=== PATIENT | male | born 1975 | race Caucasian/White ===

== ENCOUNTER 2020-08-20 13:58 | Emergency (ER) | payer BC, SELFPAY ==
[2020-08-20 14:06] VITALS: BP 168/102; PULSE 112; RESP 20; TEMP 35.9; O2SAT 97
--- NOTE | 2020-08-20 14:12 | ED.GENADULT ---
HPI - General Adult General Chief complaint: Unspecified Stated complaint: musecles cramping up all over Time Seen by Provider: 08/20/20 14:12 Source: patient and RN notes reviewed Mode of arrival: ambulatory History of Present Illness HPI narrative: 45-year-old male presents to the [facility] with complaints of 1 year of generalized muscle aches worse since last night in the upper abd and lower back. Reports having trouble sleeping and working today. States that the pain is worse then normal. Patient reports that when the pain starts he just stretched it out. Patient appears restless. Reports just starting a new job today. Related Data Home Medications Medication Instructions Recorded Confirmed No Home Medications 08/20/20 08/20/20 Allergies Allergy/AdvReac Type Severity Reaction Status Date / Time No Known Allergies Allergy Unverified 09/12/19 15:55 Review of Systems Review of Systems: Narrative: CONSTITUTIONAL: Denies fever, chills, or sweats. EYES: Denies visual changes, redness, or discharge. ENT: Denies rhinorrhea, congestion, sore throat, or otalgia. CARDIOVASCULAR: Denies chest pain, palpitations, or edema. RESPIRATORY: Denies cough or dyspnea. GASTROINTESTINAL: Reports upper abdominal pain musle pain without nausea, vomiting, or diarrhea. GENITOURINARY: Denies dysuria or hematuria. SKIN: Denies rash or itching. MUSCULOSKELETAL: reports lower back pain and generalized muscle pain. Denies joint pain. NEUROLOGIC: Denies headache, numbness, or weakness. PSYCHIATRIC: Denies anxiety or depression. All other systems reviewed are negative, except as documented in HPI. PMFSH Social History Social History Gender identity (if verbalized by the patient): Male Comments Patient denies any past medical history. At the time of my signature, I reviewed and agree with the nursing past medical, surgical, social, and family history. There is no relevant family history pertinent to the patient complaint. Exam Narrative: Exam Narrative: GENERAL: This is a well-nourished, well-developed patient, in mild distress. Patient is unable to sit still, constantly changing positions during exam. Patient is morbidly obese HEAD: normocephalic, atraumatic. EYES: PERRL. Sclera clear/white. Vision is grossly intact. EARS: External ears normal. NECK: Neck supple, non-tender. CARDIOVASCULAR: increased rate and normal rhythm without murmurs, gallops, or rubs. RESPIRATORY: Clear to auscultation. Breath sounds equal bilaterally. No wheezes, rales, or rhonchi. GASTROINTESTINAL: Abdomen soft, upper abd tenderness, nondistended. guarding noted with palpation of the upper abd. SKIN: warm, intact with no suspicious lesions or rash, good texture and turgor. NEURO: awake, alert, and oriented to person, place and time. There were no obvious focal neurologic abnormalities. EXTREMITIES: No joint tenderness, effusion, or edema noted. BACK: tender without deformity. No CVA tenderness. Course Course Emergency Course: On examination patient in distress on palpation of the upper abdomen. Describes it as the worst pain possible. Blood pressure is elevated. Discussed that the patient needs to be evaluated with blood work in an emergency room. Vital Signs Vital signs: Vital Signs Temperature 96.6 F L 08/20/20 14:06 Pulse Rate 112 H 08/20/20 14:06 Respiratory Rate 20 08/20/20 14:06 Blood Pressure 168/102 H 08/20/20 14:06 Pulse Oximetry 97 08/20/20 14:06 Temperature 96.6 F L 08/20/20 14:06 Pulse Rate 112 H 08/20/20 14:06 Respiratory Rate 20 08/20/20 14:06 Blood Pressure 168/102 H 08/20/20 14:06 Pulse Oximetry 97 08/20/20 14:06 Elevated blood pressure and heart rate Transfer Transfered to: [facility] Transfer rationale: Due to patient's complaints of generalized muscle aches and pains with the severe pain. No pain control available here, believe blood work is neede
== END 2020-08-20 14:20 | disposition short-term general hospital (02) ==
LOC: EXPBETH 14:03
PROVIDERS: Emergency Provider Nurse Practitioner
DX: M79.10 Myalgia, unspecified site (principal)
CPT/HCPCS: 99202; G0463

== ENCOUNTER 2020-08-20 14:54 | Emergency (ER) | payer BC, SELFPAY ==
--- NOTE | ~2020-08-20 | CT_ITS ---
EXAMINATION: CT abdomen pelvis wo con EXAM DATE: 08/20/2020 15:29 INDICATION: Kidney stone, low back pain. History kidney stones. TECHNIQUE: Spiral CT of the abdomen and pelvis was performed without contrast. Axial, coronal and sag ittal images were reviewed. The dose-length product (DLP) for this examination was 1049.19 mGy-cm. The exposure was tailored according to patient size (auto mA exposure control), and iterative reconst ruction (ASIR) was used as additional dose reduction technique. Comparison is made to prior examinati on from 04/12/2017. FINDINGS: There are 2 small right calyceal stones up to 2.5 mm in size. Small bilateral renal hypoden sities most likely cysts. No ureteral stones or hydronephrosis. The prostate is unremarkable. The b ladder is unremarkable. The liver, spleen, adrenal glands and pancreas are unremarkable. Gallbladde r is unremarkable. No biliary obstruction. There is no retroperitoneal or pelvic lymphadenopathy. The appendix is normal. The stomach and small bowel are unremarkable. There is expected amount of c olonic stool. No free intraperitoneal gas. The heart is normal in size. There are no pericardial or pleural effusions. Right lateral sulcus 4 mm granuloma unchanged. There are no osteoblastic or osteolytic lesions identified. IMPRESSION: 1. Small right nephrolithiasis. 2. No acute findings Reviewed, dictated and finalized at location A.
[2020-08-20 15:14] VITALS: BP 143/113; PULSE 112; RESP 20; TEMP 36.6; O2SAT 99
[2020-08-20] MEDS: LACTATED RINGERS 1,000 ML 999 ML IV CONT (15:29)
[2020-08-20] MEDS: METOCLOPRAMIDE HCL INJ 10 MG/2 ML VIAL IV PUSH (15:29)
[2020-08-20] MEDS: MORPHINE SULFATE (*CRX) 4 MG/ML INJ IV PUSH (15:31)
[2020-08-20] MEDS: FAMOTIDINE 20 MG/2 ML VIAL IV PUSH (15:32)
[2020-08-20 15:41] LABS: Basophils Percent Auto 0.3 % (0.2-1.2); Eosinophils Percent Auto 0.3 % (0-4.4); Hematocrit 49.8 % (42.0-52.0); Immature Granulocyte Absolute 0.05 K/mm3 (0.00-0.031); Immature Granulocyte Percent A 0.4 % (0-0.5); Lymphocytes Absolute Auto 2.54 K/mm3 (0.9-3.2); Lymphocytes Percent Auto 20.8 % (18.3-44.2); Mean Corpuscular HGB Conc 34.1 g/dl (32-36); Mean Corpuscular Hemoglobin 29.5 pg (26-34); Mean Corpuscular Volume 86.3 fl (80-100); Mean Platelet Volume 11.7 fl (7.4-10.4); Monocytes Absolute Auto 0.9 K/mm3 (0.1-0.6); Monocytes Percent Auto 7.1 % (2.6-8.5); Neutrophils Absolute Auto 8.7 K/mm3 (1.3-6.7); Neutrophils Percent Auto 71.1 % (45.5-73.1); Platelet Count Result 230 k/mm3 (150-375); Red Blood Count 5.77 M/mm3 (4.6-6.20); Red Cell Distribution Width 12.7 % (11.5-14.5); White Blood Count 12.2 K/mm3 (4.5-10.0)
[2020-08-20 15:53] LABS: Alanine Aminotransferase 40 U/L (4-50); Albumin Level 4.8 g/dL (3.5-5.1); Alkaline Phosphatase 138 U/L (38-126); Anion Gap 8 mmol/L (8-16); Aspartate Amino Transferase 36 U/L (17-59); Bilirubin,Total 0.6 mg/dL (0.2-1.3); Blood Urea Nitrogen 16 mg/dL (9-20); CRP < 0.5 mg/dL (<1.0); Calcium 9.6 mg/dL (8.4-10.2); Carbon Dioxide 30 mmol/L (22-30); Chloride 102 mmol/L (98-107); Estimated CRCL calculation 110 ml/min; Estimated Glomerular Filt Rate > 60; Glucose 103 mg/dL (75-110); Lipase 69 U/L (23-300); Magnesium 1.9 mg/dL (1.6-2.3); Potassium 3.8 mmol/L (3.4-5.0); Sodium 140 mmol/L (137-145)
[2020-08-20 16:13] LABS: Erythrocyte Sedimentation Rate 7 mm/hr (0-20)
[2020-08-20 16:15] LABS: Add Urine Microscopic? YES; Appearance Urine Clear (Clear); Bilirubin Urine Negative (Negative); Blood Urine Negative (Negative); Color Urine Yellow (Yellow); Glucose Urine UA Negative (Negative); Ketones Urine Negative (Negative); Leukocyte Esterase Ur Negative LEU/UL (Negative); Mucus Urine Moderate /lpf; Nitrate Urine Negative (Negative); Protein Urine 1+ mg/dL (Negative); RBC Urine 0-2 /hpf (0-2); Specific Grav Ur 1.027 (1.001-1.035); Squamous Epithelial Cell Urine Rare /hpf (Few); Urobilinogen Urine Negative mg/dL (<2.0); WBC Urine 0-3 /hpf
[2020-08-20 16:17] LABS: Creatine Kinase 200 U/L (55-170)
[2020-08-20] MEDS: KETOROLAC 30 MG/ML VIAL (*BKC) IV PUSH (16:18)
[2020-08-20 16:33] LABS: Amphetamine Screen Urine Negative (Negative); Barbiturate Screen Urine Negative (Negative); Benzodiazepines Screen Urine Negative (Negative); Cannabinoid Screen Urine Positive (Negative); Cocaine Screen Urine Negative (Negative); Methadone Screen Urine Negative (Negative); Opiate Screen Urine Negative (Negative); Phencyclidine Screen Urine Negative (Negative)
--- NOTE | 2020-08-20 16:52 | ED.GENADULT ---
HPI - General Adult General Chief complaint: Back Pain/Injury Stated complaint: muscle cramps Time Seen by Provider: 08/20/20 15:10 Source: patient Mode of arrival: ambulatory Limitations: no limitations History of Present Illness HPI narrative: Patient is a 45-year-old male who presents from urgent care for evaluation of right flank pain that began last night sharp stabbing pain in the right side worse with activity and movement notes history of kidney stones in the past denies injury or trauma has not taken anything for his symptoms has not been seen for this complaint. Related Data Allergies Allergy/AdvReac Type Severity Reaction Status Date / Time No Known Allergies Allergy Unverified 09/12/19 15:55 Review of Systems Review of Systems: All systems reviewed & are unremarkable except as noted in HPI and below PMFSH Past Medical History Medical History (Updated 08/20/20 @ 16:56 by Cesar Carreon PA-C) Kidney stone Obesity Surgical History Surgical History (Updated 08/20/20 @ 16:55 by Cesar Carreon PA-C) History of orthopedic surgery Social History Social History (Updated 08/20/20 @ 16:55 by Cesar Carreon PA-C) Smoking status: Never smoker Gender identity (if verbalized by the patient): Male Exam Narrative: Exam Narrative: GENERAL: Well-appearing, obese, uncomfortable and in no acute distress. HEAD: Normocephalic, atraumatic. EYES: PERRLA and EOMI. ENT: Nares clear, no rhinorrhea or epistaxis. Mucous membranes moist. NECK: Supple. No adenopathy or masses. No carotid bruits or JVD CHEST: Clear to auscultation. No respiratory distress. No wheezes rales or rhonchi HEART: Regular rate and rhythm. No murmur heard. Normal peripheral pulses. ABDOMEN: Soft, right sided flank tenderness, distended EXTREMITIES: Normal range of motion. No edema. SKIN: Warm, dry, no rash. NEURO: No focal deficits. Alert and oriented x3. Cranial nerves II through XII grossly intact PSYCH: Normal mood and affect. Course Vital Signs Vital signs: Vital Signs Temperature 97.8 F 08/20/20 15:14 Pulse Rate 112 H 08/20/20 15:14 Respiratory Rate 20 08/20/20 15:14 Blood Pressure 143/113 H 08/20/20 15:14 Pulse Oximetry 99 08/20/20 15:14 Temperature 97.8 F 08/20/20 15:14 Pulse Rate 112 H 08/20/20 15:14 Respiratory Rate 20 08/20/20 15:14 Blood Pressure 143/113 H 08/20/20 15:14 Pulse Oximetry 99 08/20/20 15:14 Medical Decision Making Vital Signs Vital Signs: Vital Signs Temperature 97.8 F 08/20/20 15:14 Pulse Rate 112 H 08/20/20 15:14 Respiratory Rate 20 08/20/20 15:14 Blood Pressure 143/113 H 08/20/20 15:14 Pulse Oximetry 99 08/20/20 15:14 Temperature 97.8 F 08/20/20 15:14 Pulse Rate 112 H 08/20/20 15:14 Respiratory Rate 20 08/20/20 15:14 Blood Pressure 143/113 H 08/20/20 15:14 Pulse Oximetry 99 08/20/20 15:14 Lab Data Result diagrams: 08/20/20 15:32 08/20/20 15:32 Labs: Lab Results 08/20/20 08/20/20 08/20/20 Range/Units 15:32 15:32 15:32 WBC 12.2 H (4.5-10.0) K/mm3 RBC 5.77 (4.6-6.20) M/mm3 Hgb 17.0 (14.0-18.0) g/dL Hct 49.8 (42.0-52.0) % MCV 86.3 (80-100) fl MCH 29.5 (26-34) pg MCHC 34.1 (32-36) g/dl RDW 12.7 (11.5-14.5) % Plt Count 230 (150-375) k/mm3 MPV 11.7 H (7.4-10.4) fl Immature Gran % (Auto) 0.4 (0-0.5) % Neut % (Auto) 71.1 (45.5-73.1) % Lymph % (Auto) 20.8 (18.3-44.2) % [place] % (Auto) 7.1 (2.6-8.5) % Eos % (Auto) 0.3 (0-4.4) % Baso % (Auto) 0.3 (0.2-1.2) % Lymph # (Auto) 2.54 (0.9-3.2) K/mm3 [place] # (Auto) 0.9 H (0.1-0.6) K/mm3 Eos # (Auto) 0.0 (0-0.3) K/mm3 Baso # (Auto) 0.0 (0.0-0.1) K/mm3 Abs Immat Gran (auto) 0.05 H (0.00-0.031) K/mm3 Absolute Neuts (auto) 8.7 H (1.3-6.7) K/mm3 Absolute Nucleated RBC 0.0 (0.0-0.012) K/mm3 Nucleated RBC % 0.0 (0.0-0.2) % ESR 7
[2020-08-20 17:05] VITALS: BP 137/99; PULSE 102; RESP 20; O2SAT 100
[2020-08-20 19:23] LABS: Amphetamine Screen Urine Negative (Negative); Barbiturate Screen Urine Negative (Negative); Benzodiazepines Screen Urine Negative (Negative); Cannabinoid Screen Urine Positive (Negative); Cocaine Screen Urine Negative (Negative); Methadone Screen Urine Negative (Negative); Opiate Screen Urine Negative (Negative); Phencyclidine Screen Urine Negative (Negative)
== END 2020-08-20 17:17 | disposition home or self-care (01) ==
PROVIDERS: Emergency Medicine Emergency Medical Services; Emergency Provider Emergency Medicine
DX: R10.9 Unspecified abdominal pain (principal); Z87.442 Personal history of urinary calculi; E66.9 Obesity, unspecified; Z68.41 Body mass index [BMI] 40.0-44.9, adult; N20.0 Calculus of kidney
CPT/HCPCS: 36415; 74176; 80053; 80307; 81001; 82550; 83690; 83735; 85025; 85652; 86140; 96361; 96374; 96375; 99284; J0131; J1885; J2270; J2765; J7120